=== PATIENT | male | born 1970 | race Two or more races ===

== ENCOUNTER 2024-05-25 16:07 | Emergency (ER) | payer MEDICAID, SELFPAY ==
[2024-05-25 16:08] VITALS: BMI 17.6
--- NOTE | 2024-05-25 16:45 | PC.NURSE ---
Addendum entered by Talya Rodriguez 05/25/24 17:03: called again, no answerx2 @ 1024 Original Note: called for pt from lobby/outside, no answerx1 @ [phone]
--- NOTE | 2024-05-25 17:18 | PC.NURSE ---
CALLED FROM LOBBY AND NO ANSWER. PT NOT FOUND IN THE E.D. LOBBY OR OUTSIDE
== END 2024-05-25 17:20 | disposition left against medical advice (07) ==
PROVIDERS: Emergency Provider Emergency Medicine
DX: Z53.21 Procedure and treatment not carried out due to patient leaving prior to being seen by health care provider (principal)